=== PATIENT | female | born 1995 | race Asian ===

== ENCOUNTER 2023-03-25 00:38 | Inpatient (IN) | payer OTHER ==
[2023-03-25] MEDS ORDERED: Methylergonovine 0.2 MG/1 ML Amp IM PRN ×2 (01:05→15:14)
[2023-03-25] MEDS ORDERED: Misoprostol 25 MCG (1/4 of 100 MCG) Tab VAG PRN ×2 (01:05)
[2023-03-25] MEDS ORDERED: Lidocaine 1% 50 ML MDV INJECT PRN (01:05)
[2023-03-25] MEDS ORDERED: Sodium Chloride 0.9% 10 ML Syringe FLUSH PRN (01:05)
[2023-03-25] MEDS ORDERED: Water For Irrigation,Sterile 1,000 ML Container IRR PRN (01:05)
[2023-03-25] MEDS ORDERED: Tranexamic Acid IN NACL,ISO-OS 1,000 MG in Premix Bag 1 BAG IV PRN ×4 (01:05→15:14)
[2023-03-25] MEDS ORDERED: Sodium Chloride 0.9% 20 ML SDV IV PRN (01:05)
[2023-03-25] MEDS ORDERED: Misoprostol 200 MCG Tab PO PRN (01:05)
[2023-03-25] MEDS ORDERED: Ondansetron 4 MG/2 ML SDV IVPUSH PRN (01:05)
[2023-03-25] MEDS ORDERED: Carboprost Tromethamine 250 MCG/1 mL Vial IM PRN (01:05)
[2023-03-25] MEDS ORDERED: Terbutaline 1 MG/ML SDV SUBCUT PRN (01:05)
[2023-03-25] MEDS ORDERED: Sodium Chloride 0.9% 2.5 ML Syringe FLUSH PRN (01:05)
[2023-03-25] MEDS ORDERED: Oxytocin/0.9 % Sodium Chloride 30 UNIT/500 ML BAG IV SCH ×2 (01:15)
[2023-03-25] MEDS: Lactated Ringers 1,000 ML IV SCH ×2 (01:30→12:53)
[2023-03-25 01:48] LABS: HEMATOCRIT 29.2 % (37.0-47.0); HEMOGLOBIN 10.6 g/dL (12.0-16.0); MEAN CORPUSCULAR HEMOGLOBIN 35.2 pg (28.0-32.0); MEAN CORPUSCULAR HGB CONC 36.3 g/dL (32.0-36.0); MEAN PLATELET VOLUME 10.9 fL (9.4-12.3); PLATELET COUNT,PLT 224 K/uL (150-400); RED BLOOD CELL COUNT 3.01 M/uL (4.10-5.30); WHITE BLOOD CELL COUNT,WBC 14.05 K/uL (3.9-11.3)
[2023-03-25] MEDS ORDERED: ePHEDrine 50 MG/ML SDV IVPUSH PRN ×2 (07:32)
[2023-03-25] MEDS ORDERED: Phenylephrine HCl 0.5 MG/5 ML AMP IVPUSH PRN (07:32)
[2023-03-25] MEDS ORDERED: Ropivacaine HCl/PF 400 MG in Premix Bag 1 BAG EPIDUR SCH (07:45)
[2023-03-25] MEDS ORDERED: Dexmedetomidine 200 MCG/2 ML SDV ONE (08:54)
[2023-03-25] MEDS ORDERED: fentaNYL 100 MCG/2 ML SDV ONE (13:18)
[2023-03-25] MEDS ORDERED: Bupivacaine 0.5% 10 ML SDV ONE (13:18)
[2023-03-25] MEDS ORDERED: Ibuprofen 800 MG Tab PO PRN (15:14)
[2023-03-25] MEDS ORDERED: Witch Hazel Medicated Pads 40/Jar TOP PRN (15:14)
[2023-03-25] MEDS ORDERED: Lanolin 100% Cream 7 GM Tube TOP PRN (15:14)
[2023-03-25] MEDS ORDERED: Docusate Sodium 100 MG Cap PO PRN (15:14)
[2023-03-25] MEDS ORDERED: Bisacodyl 10 MG Supp RECTAL PRN (15:14)
[2023-03-25] MEDS ORDERED: Benzocaine/Menthol 20%-0.5% Spray 78 GM Cannister TOP PRN (15:14)
[2023-03-25] MEDS ORDERED: Acetaminophen 500 MG Tab PO PRN (15:14)
[2023-03-25 15:19] LABS: PH,UMBILICAL ARTERIAL 7.242 (7.18-7.38); PH,UMBILICAL VENOUS 7.31 (7.25-7.45)
[2023-03-26 06:05] LABS: HEMATOCRIT 28.9 % (37.0-47.0); HEMOGLOBIN 10.2 g/dL (12.0-16.0)
== END 2023-03-26 17:30 | disposition home or self-care (01) | DRG 807 ==
LOC: MW.OBCHECK 00:38 → MW.OB 00:39 → MW.OBCHECK 14:33 → OBSVTOIN 14:34 → MW.OB 14:34
PROVIDERS: ADMIT Obstetrics & Gynecology; ATTEND Obstetrics & Gynecology
PROC: 10E0XZZ Delivery of Products of Conception, External Approach (ICD-10-PCS; principal; 2023-03-25)
PROC: 3E0P7VZ Introduction of Hormone into Female Reproductive, Via Natural or Artificial Opening (ICD-10-PCS; 2023-03-25)
PROC: 0HQ9XZZ Repair Perineum Skin, External Approach (ICD-10-PCS; 2023-03-25)
PROC: 3E0R3BZ Introduction of Anesthetic Agent into Spinal Canal, Percutaneous Approach (ICD-10-PCS; 2023-03-25)
PROC: 00HU33Z Insertion of Infusion Device into Spinal Canal, Percutaneous Approach (ICD-10-PCS; 2023-03-25)
DX: O48.0 Post-term pregnancy (principal); Z37.0 Single live birth; Z3A.41 41 weeks gestation of pregnancy; Z86.16 Personal history of COVID-19; O70.0 First degree perineal laceration during delivery; O99.02 Anemia complicating childbirth
CPT/HCPCS: 36415; 51702; 59025; 59409; 82803; 85014; 85018; 85027; 86592; 86850; 86900; 86901; A9270-GY; J2405; J3010; J3490; J7120; S0020

== ENCOUNTER 2025-03-01 20:10 | Inpatient (IN) | payer OTHER ==
[2025-03-01] MEDS ORDERED: Water For Irrigation,Sterile 1,000 ML Container IRR PRN (20:29)
[2025-03-01] MEDS ORDERED: Sodium Chloride 0.9% 10 ML Syringe FLUSH PRN (20:29)
[2025-03-01] MEDS ORDERED: Butorphanol 1 MG/ML SDV IVPUSH PRN (20:29)
[2025-03-01] MEDS ORDERED: Ondansetron 4 MG/2 ML SDV IVPUSH PRN (20:29)
[2025-03-01] MEDS ORDERED: Sodium Chloride 0.9% 2.5 ML Syringe FLUSH PRN (20:29)
[2025-03-01] MEDS ORDERED: Carboprost Tromethamine 250 MCG/1 mL Vial IM PRN (20:29)
[2025-03-01] MEDS: Lactated Ringers 1,000 ML IV SCH (20:50)
[2025-03-01] MEDS: Ropivacaine HCl/PF 400 MG in Premix Bag 1 BAG EPIDUR SCH (21:05)
[2025-03-01] MEDS ORDERED: ePHEDrine 50 MG/ML SDV IVPUSH PRN (21:14)
[2025-03-01] MEDS ORDERED: dexmedeTOMIDine HCl 200 MCG/2 ML SDV EPIDUR SCH (21:15)
[2025-03-01 21:18] LABS: MEAN PLATELET VOLUME 9.8 fL (9.4-12.3); NRBC ABSOLUTE 0.00 K/uL (0.00-0.02); NRBC PERCENT 0.0 /100WBC (0.0-0.2); PLATELET COUNT,PLT 238 K/uL (150-400); RED BLOOD CELL COUNT 3.99 M/uL (4.10-5.30); WHITE BLOOD CELL COUNT,WBC 10.48 K/uL (3.9-11.3)
[2025-03-01] MEDS: Oxytocin/0.9 % Sodium Chloride 30 UNIT/500 ML BAG IV SCH (23:05)
[2025-03-02] MEDS: Benzocaine/Menthol 20%-0.5% Spray 78 GM Cannister TOP PRN (05:46)
[2025-03-02] MEDS: Lanolin 100% Cream 7 GM Tube TOP PRN (05:47)
[2025-03-02] MEDS: Witch Hazel Medicated Pads 40/Jar TOP PRN (05:47)
== END 2025-03-03 12:45 | disposition home or self-care (01) | DRG 807 ==
LOC: MW.OB 20:10 → MW.OBCHECK 20:10 → MW.OB 20:29 → OBSVTOIN 20:29 → MW.OB 03-02 09:09
PROVIDERS: ADMIT Obstetrics & Gynecology Gynecology; ATTEND Obstetrics & Gynecology Gynecology
PROC: 10E0XZZ Delivery of Products of Conception, External Approach (ICD-10-PCS; principal; 2025-03-01)
PROC: 3E0S3BZ Introduction of Anesthetic Agent into Epidural Space, Percutaneous Approach (ICD-10-PCS; 2025-03-01)
PROC: 3E0R3BZ Introduction of Anesthetic Agent into Spinal Canal, Percutaneous Approach (ICD-10-PCS; 2025-03-01)
PROC: 3E033VJ Introduction of Other Hormone into Peripheral Vein, Percutaneous Approach (ICD-10-PCS; 2025-03-01)
DX: O48.0 Post-term pregnancy (principal); Z37.0 Single live birth; Z3A.40 40 weeks gestation of pregnancy; R35.0 Frequency of micturition; O99.02 Anemia complicating childbirth
CPT/HCPCS: 01967; 36415; 51702; 59025; 59409; 85014; 85018; 85027; 86592; 86850; 86900; 86901; A9270-GY; J2371; J2590; J2795; J7120